=== PATIENT | female | born 1940 | race Caucasian/White ===

== ENCOUNTER 2020-01-15 18:43 | Emergency (ER) | payer MEDICARE, OTHER ==
[2020-01-15 19:00] VITALS: BP 158/94; PULSE 77
[2020-01-15] MEDS ORDERED: Haloperidol Lactate 2 MG/ML Oral Soln 15 ML Bottle PO ONE (19:04)
[2020-01-15] MEDS ORDERED: LORazepam 0.5 MG Tab PO ONE (19:05)
--- NOTE | 2020-01-15 19:11 | EDM.PDOCBH ---
ED HPI GENERAL MEDICAL PROBLEM - General Chief Complaint: Behavioral/Psych Stated Complaint: Agitation Time Seen by Provider: 01/15/20 18:45 Source of Information: Reports: Patient, EMS, Care Home Records History Limitations: Reports: No Limitations - History of Present Illness INITIAL COMMENTS - FREE TEXT/NARRATIVE: Patient sent from [facility] via EMS secondary to increased agitation nurse called with report stating she was outside fighting a tree and the [place] Patient states she does not know what is wrong she is just upset and do not know why she states she gets anxious every now and then he gets all worked up. She has no complaints at this time Onset: Today Duration: Hour(s): Associated Symptoms: Reports: No Other Symptoms. Denies: Confusion, Chest Pain , Cough, cough w sputum, Diaphoresis, Fever/Chills, Headaches, Loss of Appetite , Nausea/Vomiting - Related Data Allergies Allergy/AdvReac Type Severity Reaction Status Date / Time atorvastatin calcium Allergy Muscle Verified 01/15/20 19:04 [From Lipitor] Aches morphine Allergy Agitation Verified 01/15/20 19:04 simvastatin Allergy Muscle Verified 01/15/20 19:04 Aches Home Meds: Home Meds Aspirin [Halfprin] 81 mg PO DAILY 08/18/14 [History] Cyanocobalamin (Vitamin B-12) [Vitamin B-12] 500 mcg PO DAILY 08/18/14 [History] Donepezil [Aricept] 10 mg PO BEDTIME 08/18/14 [History] FLUoxetine [PROzac] 40 mg PO DAILY 08/18/14 [History] Fenofibrate Nanocrystallized [Fenofibrate] 145 mg PO DAILY 08/18/14 [History] Ferrous Sulfate, Dried [Slow Release Iron] 160 mg PO ASDIRECTED 08/18/14 [ History] Gabapentin [Neurontin] 200 mg PO BEDTIME 08/18/14 [History] Guaifenesin/Pseudoephedrne HCl [Mucinex D ER] 1 each PO Q12HR PRN 08/18/14 [ History] Omeprazole 20 mg PO DAILY 08/18/14 [History] Oxybutynin 5 mg PO BID 08/18/14 [History] Potassium Chloride 10 meq PO DAILY 08/18/14 [History] Triamterene/Hydrochlorothiazid [Triamterene-HCTZ 37.5-25 MG] 1 each PO DAILY 10/01 [History] lisinopriL [Prinivil] 30 mg PO DAILY 08/18/14 [History] Ciprofloxacin [Ciprofloxacin HCl] 250 mg PO BID #12 tab 08/19/14 [Rx] ED ROS GENERAL - Review of Systems Review Of Systems: See Below Constitutional: Denies: Fever, Chills, Malaise, Weakness, Night Sweats, Diaphoresis, Decreased Appetite HEENT: Reports: No Symptoms Respiratory: Reports: No Symptoms Cardiovascular: Reports: No Symptoms Endocrine: Reports: No Symptoms GI/Abdominal: Reports: No Symptoms : Reports: No Symptoms Musculoskeletal: Reports: No Symptoms Skin: Reports: No Symptoms Neurological: Denies: Confusion, Dizziness, Headache, Numbness, Seizure Psychiatric: Reports: Agitation, Anxiety Hematologic/Lymphatic: Reports: No Symptoms Immunologic: Reports: No Symptoms ED EXAM, BEHAVIORAL HEALTH - Physical Exam Exam: See Below Exam Limited By: No Limitations General Appearance: Alert, WD/WN, No Apparent Distress, Other (Patient is alert will follow some commands no she is at [facility] but does not know the date or the time she does know the year she answers appropriately to most of my questions with review of systems she is noted to be crying and agitated but states she has nothing wrong with her states she gets like this on occasion) Eye Exam: Bilateral Eye: EOMI, Normal Inspection Ears: Normal External Exam, Normal Canal, Hearing Grossly Normal, Normal TMs Nose: Normal Inspection, Normal Mucosa, No Blood Throat/Mouth: Normal Inspection, Normal Lips, Normal Teeth, Normal Gums, Normal Oropharynx, Normal Voice, No Airway Compromise Head: Atraumatic, Normocephalic Neck: Normal Inspection, Supple, Non-Tender, Full Range of Motion Respiratory/Chest: No Respiratory Distress, Lungs Clear, Normal Breath Sounds, No Accessory Muscle Use, Chest Non-Tender Cardiovascular: Normal Peripheral Pulses, Regular Rate, Rhythm, No Edema, No Gallop, No JVD, No Murmur, No Rub GI/Abdominal: Normal Bowel Sounds, Soft, Non-Tender, No Distention Extremities: Normal Inspection, Normal Range of Motion, Non-Tender, No Pedal Edema, Other (There is noted bilateral healing abrasions and ecchymosis on the right forearm) Neurological: Alert, Normal Mood/Affect, CN II-XII Intact, Normal Cognition, Normal Reflexes, No Motor/Sensory Deficits. No: Oriented x 3 (She knows person and place does not know time) Psychiatric: Alert, Normal Affect, Normal Cognition, Tearful. No: Poor Eye Contact, Jew Delusions, Suicidal Thoughts, Auditory Hallucinations Skin Exam: Warm, Dry, Intact, Normal color, No rash COURSE, BEHAVIORAL HEALTH COMP - Course Vital Signs: Last Vital Signs Temp 36.9 C 01/15/20 18:45 Pulse 77 01/15/20 18:45 Resp 20 01/15/20 18:45 BP 158/94 H 01/15/20 18:45 Pulse Ox 98 01/15/20 18:45 Patient will be given 2 mg Haldol p.o. and 0.5 mg Ativan p.o. At no time did Hoang Roca I have any involvement with this patient he was not even in the facility myself Forest Vega PA-C saw this patient Orders, Labs, Meds: Medications Discontinued Medications Generic Name Dose Route Start Last Admin Trade Name Freq PRN Reason Stop Dose Admin Haloperidol 2 mg 01/15/20 19:10 01/15/20 19:21 Haldol PO 01/15/20 19:11 2 mg STAT ONE Administration Haloperidol Confirm 01/15/20 19:24 Haldol Administered 01/15/20 19:25 Dose 5 mg .ROUTE .STK-MED ONE Haloperidol Lactate 2 mg 01/15/20 19:04 01/15/20 19:11 Haldol 2 Mg/Ml Soln PO 01/15/20 19:05 Not Given ONETIME ONE Lorazepam 0.5 mg 01/15/20 19:05 01/15/20 19:21 Ativan PO 01/15/20 19:06 0.5 mg ONETIME ONE Administration Departure - Departure Time of Disposition: 19:50 Disposition: DC/Tfer to SNF 03 Condition: Good Clinical Impression: Agitation - Discharge Information *PRESCRIPTION DRUG MONITORING PROGRAM REVIEWED*: No *COPY OF PRESCRIPTION DRUG MONITORING REPORT IN PATIENT MIRNA: No Forms: ED Department Discharge Additional Instructions: Your diagnosis is anxiety and agitation Continue to give the patient her daily medications as directed Return to the emergency room if anything changes or gets worse Have her follow-up with a primary care provider in the next 24 hours Sepsis Event Note - Evaluation Sepsis Screening Result: No Definite Risk - Focused Exam Vital Signs: Vital Signs Temp Pulse Resp BP Pulse Ox 01/15/20 18:45 36.9 C 77 20 158/94 H 98 Date Exam was Performed: 01/15/20 Time Exam was Performed: 19:41 - Problem List & Annotations (1) Agitation SNOMED Code(s): 447062190 Code(s): R45.1 - RESTLESSNESS AND AGITATION Status: Acute Current Visit: No
[2020-01-15] MEDS ORDERED: Haloperidol 5 MG Tab ONE (19:24)
== END 2020-01-15 20:02 ==
LOC: VM.ED 18:43
DX: S50.11XA Contusion of right forearm, initial encounter (principal); S50.812A Abrasion of left forearm, initial encounter; R45.1 Restlessness and agitation; F41.9 Anxiety disorder, unspecified; Z79.82 Long term (current) use of aspirin; Z79.899 Other long term (current) drug therapy; Z88.5 Allergy status to narcotic agent; Z88.8 Allergy status to other drugs, medicaments and biological substances; X58.XXXA Exposure to other specified factors, initial encounter
CPT/HCPCS: 99283; 99285; A9270

== ENCOUNTER 2020-02-16 18:04 | Emergency (ER) | payer MEDICARE, OTHER ==
--- NOTE | 2020-02-16 18:35 | EDM.PDOC ---
<Forest Roca - Last Filed: 02/16/20 19:16> ED HPI GENERAL MEDICAL PROBLEM - General Stated Complaint: FALL Time Seen by Provider: 02/16/20 18:15 Source of Information: Reports: EMS, Family - History of Present Illness INITIAL COMMENTS - FREE TEXT/NARRATIVE: Patient comes emergency department today by ambulance from the assisted living center at [facility] for increased falls and confusion. The HPI in this patient is primarily obtained from the family EMS as well as the [facility] as the patient is pleasantly confused and really does not get much history to me. Speaking with the [facility] it sounds like she has had increased confusion and trying to leave her assisted living situation more over the past few days. She has gotten outside and fallen a couple of times yesterday as well as today. These were unwitnessed and unknown if she had a loss of consciousness. She did fall and hit the right orbit of her face yesterday which she has a bruise for. Today she was found to be more agitated or confused. She fell twice outside today and yet again this was not observed. The son is noticed in gradual decline of her overall mental status over the past couple of months. He has not been able to see her due to the recent COVID concerns. - Related Data Allergies Allergy/AdvReac Type Severity Reaction Status Date / Time atorvastatin calcium Allergy Muscle Verified 01/15/20 19:04 [From Lipitor] Aches morphine Allergy Agitation Verified 01/15/20 19:04 simvastatin Allergy Muscle Verified 01/15/20 19:04 Aches Home Meds: Home Meds Aspirin [Halfprin] 81 mg PO DAILY 08/18/14 [History] Donepezil [Aricept] 10 mg PO BEDTIME 08/18/14 [History] FLUoxetine [PROzac] 40 mg PO DAILY 08/18/14 [History] Ferrous Sulfate, Dried [Slow Release Iron] 160 mg PO ASDIRECTED 08/18/14 [History] Gabapentin [Neurontin] 100 mg PO BEDTIME 08/18/14 [History] Guaifenesin/Pseudoephedrne HCl [Mucinex D ER] 1 each PO Q12HR PRN 08/18/14 [History] Potassium Chloride 10 meq PO DAILY 08/18/14 [History] lisinopriL [Prinivil] 40 mg PO DAILY 08/18/14 [History] Acetaminophen 1 - 2 tab PO Q6H PRN 01/15/20 [History] Calcium Carbonate [Tums] 2 tab PO Q6H PRN 01/15/20 [History] Carbamide Peroxide [Debrox] 15 ml OT ASDIRECTED PRN 01/15/20 [History] Cetirizine [ZyrTEC] 10 mg PO DAILY PRN 01/15/20 [History] Cholecalciferol (Vitamin D3) [Vitamin D] 4,000 unit PO DAILY 01/15/20 [History] Cranberry 400 mg PO DAILY 01/15/20 [History] Furosemide [Lasix] 40 mg PO DAILY 01/15/20 [History] Hydrocortisone [Preparation H] 26 gm TP TID PRN 01/15/20 [History] Isosorbide Mononitrate [Isosorbide Mononitrate ER] 30 mg PO DAILY 01/15/20 [History] LORazepam [Ativan] 0.25 mg PO BID 01/15/20 [History] LORazepam [Ativan] 0.25 mg PO BID PRN 01/15/20 [History] Loperamide [Imodium] 2 mg PO ASDIRECTED PRN 01/15/20 [History] Meclizine [Antivert] 25 mg PO TID 01/15/20 [History] Mirabegron [Myrbetriq] 25 mg PO DAILY 01/15/20 [History] Mirtazapine 30 mg PO BEDTIME 01/15/20 [History] QUEtiapine [SEROquel] 25 mg PO DAILY 01/15/20 [History] QUEtiapine [SEROquel] 50 mg PO BEDTIME 01/15/20 [History] Spironolactone [Aldactone] 25 mg PO DAILY 01/15/20 [History] cephALEXin [Keflex] 500 mg PO TID 7 Days #21 cap 02/16/20 [Rx] Past Medical History Cardiovascular History: Reports: Angina, CAD, High Cholesterol, Hypertension Musculoskeletal History: Reports: Osteoarthritis ED ROS GENERAL - Review of Systems Review Of Systems: Unable To Obtain Reason Not Obtained: Pleaseantly confused ED EXAM, GENERAL - Physical Exam Exam: See Below Free Text/Narrative:: The patient does have a wig on but there appears to be quite a bit of make-up or lipstick or some type of cosmetic product that is in her hair and as well as on her scalp. She does recognize her son in the room. Exam Limited By: Altered Mental Status (She is pleasantly confused. She knows her date of and last name otherwise she is confused to the rest of the orientation questions.) General Appearance: Alert, WD/WN Eye Exam: Bilateral Eye: EOMI, PERRL Ears: Normal External Exam. No: Normal TMs (Right TM is occluded with cerumen. The left TM is unremarkable pearly che with normal cone of light) Nose: Normal Inspection, Normal Mucosa Throat/Mouth: Normal Inspection, Normal Oropharynx Head: Normocephalic, Facial Tenderness (Does have ecchymosis to the right orbit as well as some swelling. There is no subcutaneous emphysema bony deformities.). No: Atraumatic (There is ecchymosis and swelling to the right orbit. The rest of the scalp is unremarkable and atraumatic. To include the facial features as well.) Neck: Normal Inspection, Supple, Non-Tender. No: Lymphadenopathy (L), Lymphadenopathy (R), Tender Lateral, Tender Midline Respiratory/Chest: No Respiratory Distress, Lungs Clear, Normal Breath Sounds, No Accessory Muscle Use, Chest Non-Tender Cardiovascular: Normal Peripheral Pulses, Regular Rate, Rhythm Peripheral Pulses: 2+: Radial (L), Radial (R), Posterior Tibial (L), Posterior Tibial (R), Dorsalis Pedis (L), Dorsalis Pedis (R) GI/Abdominal: Normal Bowel Sounds, Soft, Non-Tender, No Organomegaly, No Distention (Female) Exam: Deferred Rectal (Female) Exam: Deferred Back Exam: Normal Inspection, Full Range of Motion, Other (There is no bruising swelling ecchymosis or other signs of trauma to the posterior thorax). No: Paraspinal Tenderness, Vertebral Tenderness Extremities: Normal Capillary Refill, Pedal Edema (Bilaterally much more on the right than the left), Joint Swelling (To the right lower ankle.), Increased Warmth (Right lower distal tib fib ankle. ). No: Normal Inspection (She does have quite a bit of swelling of the right lower extremity that is much more sensitive than the left. It is hot and erythematous up about residential up the tib-fib region. There is also some ecchymosis on the posterior aspect of the calcaneus region.) Neurological: Alert, CN II-XII Intact, Normal Reflexes, No Motor/Sensory Deficits, Confused (As stated previously she knows her name date of and her son in the room she is otherwise confused.). No: Normal Cognition Psychiatric: Anxious Skin Exam: Warm, Dry, Intact, Normal Color Course - Re-Assessments/Exams Free Text/Narrative Re-Assessment/Exam: 02/16/20 18:37 Blood cultures x2 with concerns of the cellulitis to the right lower extremity. Labs ordered to include UA. CT head neck facial bones as well as an x-ray of the right ankle. 02/16/20 19:16 Report to Eleonora AYALA at shift change. Waiting on labs and xray reports. Departure - Departure Disposition: Home, Self-Care 01 Clinical Impression: Cellulitis Qualifiers: Site of cellulitis: extremity Site of cellulitis of extremity: lower extremity Laterality: right Qualified Code(s): L03.115 - Cellulitis of right lower limb - Discharge Information Prescriptions: cephALEXin [Keflex] 500 mg PO TID 7 Days #21 cap Instructions: Cellulitis, Adult, Cephalexin tablets or capsules Referrals: Sara Sprague MD [Primary Care Provider] - Forms: ED Department Discharge Additional Instructions: 1. rest 2. increase your water intake 3. Take all antibiotics as prescribed even if feeling better 4. Take a probiotic while on antibiotics to help promote healthy GI motility 5. Activity and diet as tolerated 6. Can use Ibuprofen and tylenol for any fever or discomfort 7. Follow up with your PCP or return if symptoms progress or worsen 8. Education provided to you regarding your illness, probiotics, antibiotic prescribed 9. Call with any questions or concerns <Eleonora Walker - Last Filed: 02/16/20 19:55> Course - Orders/Labs/Meds Orders: Active Orders 24 hr Category Date Time Status CULTURE BLOOD [BC] Stat Lab 02/16/20 18:28 Received CULTURE BLOOD [BC] Stat Lab 02/16/20 18:33 Received CULTURE URINE [RM] Stat Lab 02/16/20 19:12 Received Blood Culture x2 Reflex Set [OM.PC] Stat Oth 02/16/20 18:15 Ordered Labs: Laboratory Tests 02/16/20 02/16/20 02/16/20 Range/Units 18:28 18:28 19:12 WBC 6.2 (4.0-10.0) x10^3/uL RBC 3.52 L (4.00-5.50) x10^6/uL Hgb 10.2 L D (12.0-16.0) g/dL Hct 31.4 L (33.0-47.0) % MCV 89.2 (78.0-93.0) fL MCH 29.0 (26.0-32.0) pg MCHC 32.5 (32.0-36.0) g/dL RDW Coeff of [place] 14.2 (10.0-15.0) % Plt Count 283 (130-400) x10^3/uL Neut % (Auto) 67.3 (50.0-80.0) % Lymph % (Auto) 16.2 L (25.0-50.0) % [place] % (Auto) 10.7 (2.0-11.0) % Eos % (Auto) 5.2 H (0.0-4.0) % Baso % (Auto) 0.6 (0.2-1.2) % Sodium 141 (136-145) mmol/L Potassium 4.1 (3.5-5.1) mmol/L Chloride 106 (98-107) mmol/L Carbon Dioxide 25 (21-32) mmol/L Anion Gap 14.1 (10-20) mmol/L BUN 22 H (7-18) mg/dL Creatinine 1.7 H (0.55-1.02) mg/dL Est Cr Clr Drug Dosing TNP Estimated GFR (MDRD) 29 Glucose 166 H (74-106) mg/dL Calcium 8.0 L (8.5-10.1) mg/dL Corrected Calcium 8.80 (8.5-10.1) mg/dL Total Bilirubin 0.5 (0.2-1.0) mg/dL AST 24 (15-37) U/L ALT 23 (14-59) U/L Alkaline Phosphatase 99 (46-116) U/L C-Reactive Protein 0.8 (<=0.9) mg/dL Total Protein 6.0 L (6.4-8.2) g/dL Albumin 3.0 L (3.4-5.0) g/dL Globulin 3.0 Albumin/Globulin Ratio 1.00 Urine Color Yellow (YELLOW) Urine Appearance Slightly cloudy H (CLEAR) Urine pH 6.0 (5.0-8.0) Ur Specific [place] 1.020 Urine Protein Negative (NEGATIVE) mg/dL Urine Glucose (UA) Negative (NEGATIVE) mg/dL Urine Ketones Negative (NEGATIVE) mg/dL Urine Occult Blood Negative (NEGATIVE) Urine Nitrite Negative (NEGATIVE) Urine Bilirubin Negative (NEGATIVE) Urine Urobilinogen 0.2 (0.2) EU/dL Ur Leukocyte Esterase Small H (NEGATIVE) Urine RBC 0-5 (NOT SEEN) /HPF Urine WBC 5-10 H (NOT SEEN) /HPF Ur Squamous Epith Cells Occasional H (NEGATIVE) /HPF Urine Bacteria Rare (NEGATIVE) /HPF Urine Mucus Rare H (NEGATIVE) /LPF Meds: Medications Discontinued Medications Generic Name Dose Route Start Last Admin Trade Name Freq PRN Reason Stop Dose Admin Cephalexin 500 mg 02/16/20 19:46 Keflex PO 02/16/20 19:47 ONETIME ONE Departure - Departure Time of Disposition: 19:50 Condition: Good - Assessment/Plan Assessment:: 1. Right lower extremity cellulitis Plan: 1. Labs completed in the ER. Results reviewed with the patient and son 2. UA completed in the ER Results reviewed with the patient and son 3. CT scan of Head and neck completed in ER results reviewed with the patient and son 4. Xray of right lower extremity complete 5. Patient and nursing staff was updated regarding the plan of care 6. Education provided the patient regarding activity, diet, rest, [id number] medication modalities, and follow-up care was provided 7. Patient and family are agreeable to the above plan of care 8. All questions and concerns were addressed with the patient and family prior to discharge
[2020-02-16 19:01] LABS: ANION GAP 14.1 mmol/L (10-20); CHLORIDE,CL 106 mmol/L (98-107); SODIUM,NA 141 mmol/L (136-145)
--- NOTE | 2020-02-16 19:31 | CT ---
[id number] CT/CT Head WO IV EXAM: NONCONTRAST HEAD CT INDICATION: INCREASED CONFUSION AND FALLS, FACIAL INJURY COMPARISON: December 17, 2016. DISCUSSION: There is mild generalized atrophy. Moderate multifocal white matter hypoattenuation is nonspecific, but generally ascribed to chronic small vessel ischemia. No mass effect or midline shift. No acute hemorrhage or extra-axial fluid collection. No acute territorial infarct is identified. Mild scattered polypoid paranasal sinus mucosal thickening versus small mucosal retention cysts in the sphenoid sinuses and left maxillary sinus. Right anterior scalp soft tissue swelling. The facial bones will be further detailed on a dedicated facial bone study. IMPRESSION: 1. No evidence of acute intracranial trauma. Noam Escalante MD 02/16/20 [id number] Thank you for allowing us to participate in the care of your patient.
--- NOTE | 2020-02-16 19:35 | CT ---
[id number] CT/CT Facial Bones WO IV EXAM: FACIAL BONE CT WITHOUT CONTRAST INDICATION: RECURRENT FALLS COMPARISON: None. DISCUSSION: Preseptal periorbital right facial soft tissue swelling and right anterior scalp soft tissue swelling/small hematoma. Moderate osteoarthritis of the temporomandibular joints. No acute facial bone fracture is identified. Trace fluid in the right sphenoid sinus suggests acute sinusitis. Small mucosal retention cysts in both maxillary and sphenoid sinuses. IMPRESSION: 1. Right facial soft tissue swelling. No acute facial bone fracture is identified. Noam Escalante MD 02/16/20 1934 Thank you for allowing us to participate in the care of your patient.
--- NOTE | 2020-02-16 19:40 | CT ---
[id number] CT/CT Cervical Spine WO IV EXAM: NONCONTRAST CERVICAL SPINE CT INDICATION: RECURRENT FALLS, CONFUSION COMPARISON: None. DISCUSSION: The vertebral bodies are normal in height and alignment. No fracture or suspicious osseous lesion is identified. Moderate to advanced degenerative disc disease at C5-C6 with moderate changes at most of the remaining disc levels. Facet arthropathy ranging from mild to moderate throughout the cervical spine. Bilateral carotid bifurcation calcification dictations are noted. IMPRESSION: 1. No evidence of acute cervical spine trauma. Noam Escalante MD 02/16/20 1938 Thank you for allowing us to participate in the care of your patient.
--- NOTE | 2020-02-16 19:41 | CR ---
[id number] RAD/RAD Ankle Right 3V Min EXAM: RAD Ankle Right 3V Min INDICATION: RIGHT ANKLE PAIN, RECURRENT FALLS COMPARISON: None. DISCUSSION: Soft tissue swelling throughout the ankle and imaged distal leg. Osteopenia. Small plantar calcaneal spur. Mild to moderate enthesopathy at the Achilles attachment on the calcaneus. No acute fracture or dislocation is identified. Arterial calcifications. IMPRESSION: 1. Soft tissue swelling. No acute osseous abnormality. Noam Escalante MD 02/16/20 [id number] Thank you for allowing us to participate in the care of your patient.
[2020-02-16] MEDS ORDERED: Cephalexin 500 MG Cap PO ONE (19:46)
[2020-02-16 19:59] VITALS: BP 140/58; PULSE 80
== END 2020-02-16 20:00 | disposition home or self-care (01) ==
LOC: VM.ED 18:04
DX: L03.115 Cellulitis of right lower limb (principal); I10 Essential (primary) hypertension; I25.10 Atherosclerotic heart disease of native coronary artery without angina pectoris; M19.90 Unspecified osteoarthritis, unspecified site; Z79.82 Long term (current) use of aspirin; Z79.899 Other long term (current) drug therapy; Z88.5 Allergy status to narcotic agent; Z88.8 Allergy status to other drugs, medicaments and biological substances
CPT/HCPCS: 36415; 70450; 70486; 72125; 73610-RT; 80053; 81001; 85025; 86140; 87040; 87086; 99284-GF; 99285-25; A9270-GY

== ENCOUNTER 2020-05-12 12:36 | Emergency (ER) | payer MEDICARE, OTHER ==
[2020-05-12 12:50] VITALS: BP 110/59; PULSE 78
--- NOTE | 2020-05-12 12:52 | EDM.PDOC ---
ED HPI GENERAL MEDICAL PROBLEM - General Chief Complaint: Upper Extremity Injury/Pain Stated Complaint: R ARM PAIN Time Seen by Provider: 05/12/20 12:40 Source of Information: Reports: Patient History Limitations: Reports: No Limitations, Other (vascular dementia, chronic confusion ) - History of Present Illness INITIAL COMMENTS - FREE TEXT/NARRATIVE: Patient comes into the emergency department with [facility] staff for complaint of a right arm injury. [facility] staff state that the patient had an unwitnessed fall last evening and this morning they started noticing the patient was guarding her right arm and not using it. Staff also noticed increase in swelling and bruising on the right arm. Patient does have cognition and memory concerns and is unable to provide a adequate history of the illness. Patient does appear to be guarding the right wrist region. She is also not using that arm. Patient actively denies any issues or concerns however again she is a poor historian based off of her cognition and mental capacity. halfway staff state that they had no other concerns or complaints and that the patient's been relatively healthy. They also have not noticed any COVID19 symptoms. Patient also has not had any positive COVID-19 test. Onset: Sudden Location: Reports: Upper Extremity, Right Quality: Reports: Other Improves with: Reports: Immobilization Worsens with: Reports: Movement Associated Symptoms: Reports: No Other Symptoms - Related Data Allergies Allergy/AdvReac Type Severity Reaction Status Date / Time atorvastatin calcium Allergy Muscle Verified 05/12/20 12:54 [From Lipitor] Aches morphine Allergy Agitation Verified 05/12/20 12:54 simvastatin Allergy Muscle Verified 05/12/20 12:54 Aches Home Meds: Home Meds Aspirin [Halfprin] 81 mg PO DAILY 08/18/14 [History] Donepezil [Aricept] 10 mg PO BEDTIME 08/18/14 [History] FLUoxetine [PROzac] 40 mg PO DAILY 08/18/14 [History] Ferrous Sulfate, Dried [Slow Release Iron] 160 mg PO ASDIRECTED 08/18/14 [History] Gabapentin [Neurontin] 100 mg PO BEDTIME 08/18/14 [History] Guaifenesin/Pseudoephedrne HCl [Mucinex D ER] 1 each PO Q12HR PRN 08/18/14 [History] Potassium Chloride 10 meq PO DAILY 08/18/14 [History] lisinopriL [Prinivil] 40 mg PO DAILY 08/18/14 [History] Acetaminophen 1 - 2 tab PO Q6H PRN 01/15/20 [History] Calcium Carbonate [Tums] 2 tab PO Q6H PRN 01/15/20 [History] Carbamide Peroxide [Debrox] 15 ml OT ASDIRECTED PRN 01/15/20 [History] Cetirizine [ZyrTEC] 10 mg PO DAILY PRN 01/15/20 [History] Cholecalciferol (Vitamin D3) [Vitamin D] 4,000 unit PO DAILY 01/15/20 [History] Cranberry 400 mg PO DAILY 01/15/20 [History] Furosemide [Lasix] 40 mg PO DAILY 01/15/20 [History] Hydrocortisone [Preparation H] 26 gm TP TID PRN 01/15/20 [History] Isosorbide Mononitrate [Isosorbide Mononitrate ER] 30 mg PO DAILY 01/15/20 [History] LORazepam [Ativan] 0.25 mg PO BID 01/15/20 [History] LORazepam [Ativan] 0.25 mg PO BID PRN 01/15/20 [History] Loperamide [Imodium] 2 mg PO ASDIRECTED PRN 01/15/20 [History] Meclizine [Antivert] 25 mg PO TID 01/15/20 [History] Mirabegron [Myrbetriq] 25 mg PO DAILY 01/15/20 [History] Mirtazapine 30 mg PO BEDTIME 01/15/20 [History] QUEtiapine [SEROquel] 25 mg PO DAILY 01/15/20 [History] QUEtiapine [SEROquel] 50 mg PO BEDTIME 01/15/20 [History] Spironolactone [Aldactone] 25 mg PO DAILY 01/15/20 [History] cephALEXin [Keflex] 500 mg PO TID 7 Days #21 cap 02/16/20 [Rx] Past Medical History Cardiovascular History: Reports: Angina, CAD, High Cholesterol, Hypertension Musculoskeletal History: Reports: Osteoarthritis Review of Systems - Review of Systems Review Of Systems: Unable To Obtain Reason Not Obtained: [facility] personnel answered the below questions. Constitutional: Reports: No Symptoms Eyes: Reports: No Symptoms Ears: Reports: No Symptoms Nose: Reports: No Symptoms Mouth/Throat: Reports: No Symptoms Respiratory: Reports: No Symptoms Cardiovascular: Reports: No Symptoms GI/Abdominal: Reports: No Symptoms Skin: Reports: No Symptoms Neurological: Reports: No Symptoms ED EXAM, GENERAL - Physical Exam Exam: See Below Exam Limited By: Other General Appearance: Alert, WD/WN, No Apparent Distress Eye Exam: Bilateral Eye: EOMI, PERRL Head: Atraumatic, Normocephalic Neck: Normal Inspection, Supple, Non-Tender, Full Range of Motion Respiratory/Chest: No Respiratory Distress, Lungs Clear, Normal Breath Sounds, No Accessory Muscle Use, Chest Non-Tender Cardiovascular: Normal Peripheral Pulses, Regular Rate, Rhythm, No Edema Extremities: Normal Inspection, Normal Range of Motion, Non-Tender, No Pedal Edema, Normal Capillary Refill Neurological: Alert Skin Exam: Warm, Dry, Intact, Normal Color, Other (right wrist- limited ROM. CMS intact. mod swelling and ecchymosis noted. no redness and warmth noted ) Course - Vital Signs Last Recorded V/S: Last Vital Signs Temp 36.1 C 05/12/20 12:42 Pulse 78 05/12/20 12:42 Resp 18 05/12/20 12:42 BP 110/59 L 05/12/20 12:42 Pulse Ox 97 05/12/20 12:42 Departure - Departure Time of Disposition: 13:50 Disposition: Home, Self-Care 01 Condition: Good Clinical Impression: Fracture of radius Qualifiers: Encounter type: initial encounter Fracture type: closed Fracture morphology: unspecified fracture morphology Laterality: right - Discharge Information *PRESCRIPTION DRUG MONITORING PROGRAM REVIEWED*: Not Applicable *COPY OF PRESCRIPTION DRUG MONITORING REPORT IN PATIENT MIRNA: Not Applicable Instructions: Wrist Fracture Treated With Immobilization, [id number] Referrals: Sara Sprague MD [Primary Care Provider] - Forms: ED Department Discharge, ED Return to Work/School Form Additional Instructions: 1. Rest 2. wear splint until evaluated by orthopedic 3. Can use tylenol and ibuprofen as needed for pain and discomfort 4. Diet as tolerated 5. Activity as tolerated 6. Elevated the injured area above the level of the heart to decrease swelling and discomfort. 7. Use ice 3-4 times a day at 20-minute intervals to help with any swelling and discomfort 8. Follow-up with your primary care provider symptoms continue or to progress 9. Follow with any questions or concerns 10. Discharge information has been provided regarding your injury Sepsis Event Note (ED) - Focused Exam Vital Signs: Vital Signs Temp Pulse Resp BP Pulse Ox 05/12/20 12:42 36.1 C 78 18 110/59 L 97 - Assessment/Plan Assessment:: 1. right arm injury 2. right wrist fracture Plan: 1. X-ray completed in the emergency department results reviewed with the patient 2. Ice Applied to the affected limb 3. thumb splint spica provided 4. Education regarding splinting, activity, [id number] medications, and follow-up care provided. 5. All questions and concerns addressed with the patient prior to discharge
--- NOTE | 2020-05-12 13:36 | CR ---
[id number] RAD/RAD Wrist Right 2V Exam: RAD Wrist Right 2V Indication:FALL. Comparison: No prior imaging for comparison. Discussion/Impression: Acute complete transverse nondisplaced slightly impacted fracture of the distal radial metaphysis. Fracture is mildly comminuted with at least one fracture line extending through the radius subchondral endplate into the radiocarpal articulation. Possible nondisplaced fracture at the base of the ulnar styloid. Additionally there is a possible triquetral avulsion fracture seen on lateral view along the dorsal aspect of the carpus. Soft tissue swelling. Braulio Carter MD 05/12/20 [id number] Thank you for allowing us to participate in the care of your patient.
== END 2020-05-12 13:56 | disposition home or self-care (01) ==
LOC: VM.ED 12:36
DX: S52.501A Unspecified fracture of the lower end of right radius, initial encounter for closed fracture (principal); S60.211A Contusion of right wrist, initial encounter; S50.11XA Contusion of right forearm, initial encounter; I10 Essential (primary) hypertension; I25.10 Atherosclerotic heart disease of native coronary artery without angina pectoris; Z88.5 Allergy status to narcotic agent; Z88.8 Allergy status to other drugs, medicaments and biological substances; Z79.82 Long term (current) use of aspirin; Z79.899 Other long term (current) drug therapy; W19.XXXA Unspecified fall, initial encounter
CPT/HCPCS: 29125; 73100-RT; 99283; 99283-25

== ENCOUNTER 2020-06-27 22:57 | Emergency (ER) | payer MEDICARE, OTHER ==
--- NOTE | 2020-06-27 23:49 | EDM.PDOC ---
ED HPI GENERAL MEDICAL PROBLEM - General Stated Complaint: FALL Time Seen by Provider: 06/27/20 23:30 Source of Information: Reports: Patient History Limitations: Reports: No Limitations - History of Present Illness INITIAL COMMENTS - FREE TEXT/NARRATIVE: Patient comes emergency department today from the special cares unit at the detention for a fall. HPI is obtained from EMS as well as the detention as the patient has dementia and really is not alert and appropriate. The patient was getting up to go to the bathroom when she tripped and fell landing injuring her right hand. This happened just prior to arrival. Or unsure if there was a loss of consciousness. The patient has been acting appropriately as she normally does. The staff at the detention noted that she had a skin tear to her right hand. So she to the ER for repair of the skin tear to her right hand. Patient has not been vomiting. She falls on a regular basis. There is no change in her baseline neurological status according to the detention. - Related Data Allergies Allergy/AdvReac Type Severity Reaction Status Date / Time atorvastatin calcium Allergy Muscle Verified 06/27/20 23:50 [From Lipitor] Aches morphine Allergy Agitation Verified 06/27/20 23:50 simvastatin Allergy Muscle Verified 06/27/20 23:50 Aches Home Meds: Home Meds Aspirin [Halfprin] 81 mg PO DAILY 08/18/14 [History] Donepezil [Aricept] 10 mg PO BEDTIME 08/18/14 [History] FLUoxetine [PROzac] 40 mg PO DAILY 08/18/14 [History] Ferrous Sulfate, Dried [Slow Release Iron] 160 mg PO ASDIRECTED 08/18/14 [History] Gabapentin [Neurontin] 100 mg PO BEDTIME 08/18/14 [History] Guaifenesin/Pseudoephedrne HCl [Mucinex D ER] 1 each PO Q12HR PRN 08/18/14 [History] Potassium Chloride 10 meq PO DAILY 08/18/14 [History] lisinopriL [Prinivil] 40 mg PO DAILY 08/18/14 [History] Acetaminophen 1 - 2 tab PO Q6H PRN 01/15/20 [History] Calcium Carbonate [Tums] 2 tab PO Q6H PRN 01/15/20 [History] Carbamide Peroxide [Debrox] 15 ml OT ASDIRECTED PRN 01/15/20 [History] Cetirizine [ZyrTEC] 10 mg PO DAILY PRN 01/15/20 [History] Cholecalciferol (Vitamin D3) [Vitamin D] 4,000 unit PO DAILY 01/15/20 [History] Cranberry 400 mg PO DAILY 01/15/20 [History] Furosemide [Lasix] 40 mg PO DAILY 01/15/20 [History] Hydrocortisone [Preparation H] 26 gm TP TID PRN 01/15/20 [History] Isosorbide Mononitrate [Isosorbide Mononitrate ER] 30 mg PO DAILY 01/15/20 [History] LORazepam [Ativan] 0.25 mg PO BID 01/15/20 [History] LORazepam [Ativan] 0.25 mg PO BID PRN 01/15/20 [History] Loperamide [Imodium] 2 mg PO ASDIRECTED PRN 01/15/20 [History] Meclizine [Antivert] 25 mg PO TID 01/15/20 [History] Mirabegron [Myrbetriq] 25 mg PO DAILY 01/15/20 [History] Mirtazapine 30 mg PO BEDTIME 01/15/20 [History] QUEtiapine [SEROquel] 25 mg PO DAILY 01/15/20 [History] QUEtiapine [SEROquel] 50 mg PO BEDTIME 01/15/20 [History] Spironolactone [Aldactone] 25 mg PO DAILY 01/15/20 [History] cephALEXin [Keflex] 500 mg PO TID 7 Days #21 cap 02/16/20 [Rx] Past Medical History Cardiovascular History: Reports: Angina, CAD, High Cholesterol, Hypertension Musculoskeletal History: Reports: Osteoarthritis Psychiatric History: Reports: Anxiety, Dementia, Depression ED ROS GENERAL - Review of Systems Review Of Systems: Unable To Obtain Reason Not Obtained: Dementia and confusion chronically ED EXAM, GENERAL - Physical Exam Exam: See Below Exam Limited By: Altered Mental Status (dementia chronically.) General Appearance: Alert, WD/WN, No Apparent Distress Eye Exam: Bilateral Eye: EOMI, PERRL Ears: Normal External Exam, Normal Canal, Normal TMs Nose: Normal Inspection, Normal Mucosa Throat/Mouth: Normal Inspection, Normal Lips, Normal Oropharynx, Normal Voice Head: Atraumatic, Normocephalic Neck: Normal Inspection, Supple, Non-Tender. No: Tender Lateral, Tender Midline Respiratory/Chest: No Respiratory Distress, Lungs Clear, Normal Breath Sounds, No Accessory Muscle Use, Chest Non-Tender Cardiovascular: Normal Peripheral Pulses, Regular Rate, Rhythm Peripheral Pulses: 2+: Radial (L), Radial (R), Posterior Tibial (L), Posterior Tibial (R), Dorsalis Pedis (L), Dorsalis Pedis (R) GI/Abdominal: Normal Bowel Sounds, Soft, Non-Tender (Female) Exam: Deferred Rectal (Female) Exam: Deferred Back Exam: Normal Inspection, Full Range of Motion. No: Paraspinal Tenderness, Vertebral Tenderness Extremities: Normal Range of Motion, Non-Tender, No Pedal Edema, Normal Capillary Refill. No: Normal Inspection (On her right dorsal hand there is a C shaped very superficial 6cm skin tear to the distal lateral right dorsal hand. No Bony deformity crepitus bruising swelling ecchymosis or tenderness. Rest of the hand is atraumatic.) Neurological: Alert, CN II-XII Intact, No Motor/Sensory Deficits, Disoriented (which is her baseline. ) Psychiatric: Normal Affect, Normal Mood Skin Exam: Warm, Dry, Intact, Normal Color, No Rash ED GENERAL MEDICAL PROCEDURES - Laceration/Wound Repair Right Anterior Hand Lac/wound length in cm: 6 Appearance: Superficial, Linear Distal NVT: Neuro & Vascular Intact Skin Prep: Chlorhexidine (Hibiciens), Saline Closed with: Dermabond Course - Vital Signs Last Recorded V/S: Last Vital Signs Temp 96.7 F L 06/27/20 22:57 Pulse 56 L 06/27/20 22:57 Resp 16 06/27/20 22:57 BP 136/60 06/27/20 22:57 Pulse Ox 96 06/27/20 22:57 - Orders/Labs/Meds Meds: Medications Discontinued Medications Generic Name Dose Route Start Last Admin Trade Name Freq PRN Reason Stop Dose Admin Diphtheria/Tetanus/Acell Pertussis 0.5 ml 06/28/20 00:45 06/28/20 00:10 Boostrix IM 06/28/20 00:46 0.5 ml .ONCE ONE Administration Departure - Departure Time of Disposition: 23:50 Disposition: DC/Tfer to [facility] 03 Clinical Impression: Skin tear - Discharge Information Instructions: Skin Tear, [id number] Referrals: PCP,Unobtain [Ordering Only Provider] - Forms: ED Department Discharge Additional Instructions: Watch for signs of infection. Keep the area clean and dry. Watch for signs of infection. Return to the ED if new or worsening symptoms. Recheck as needed.
[2020-06-28] MEDS ORDERED: Diphtheria,Pertussis(Acell),Tetanus Vaccine 0.5 ML Syringe IM ONE ×2 (00:01→00:45)
[2020-06-28 01:04] VITALS: BP 136/60; PULSE 56
== END 2020-06-28 00:28 ==
LOC: VM.ED 22:57
DX: S61.411A Laceration without foreign body of right hand, initial encounter (principal); I25.10 Atherosclerotic heart disease of native coronary artery without angina pectoris; I10 Essential (primary) hypertension; M19.90 Unspecified osteoarthritis, unspecified site; F41.9 Anxiety disorder, unspecified; F32.9 Major depressive disorder, single episode, unspecified; F03.90 Unspecified dementia, unspecified severity, without behavioral disturbance, psychotic disturbance, mood disturbance, and anxiety; Z88.8 Allergy status to other drugs, medicaments and biological substances; Z88.5 Allergy status to narcotic agent; Z79.82 Long term (current) use of aspirin; Z23 Encounter for immunization; Z79.899 Other long term (current) drug therapy; W19.XXXA Unspecified fall, initial encounter; Y92.129 Unspecified place in nursing home as the place of occurrence of the external cause
CPT/HCPCS: 12002; 90471; 90715; 99283; 99284-25

== ENCOUNTER 2020-11-26 12:10 | Inpatient (IN) | payer MEDICARE, OTHER, MEDICAID ==
[2020-11-26] MEDS ORDERED: Sodium Chloride 0.9% 10 ML Syringe FLUSH PRN (12:19)
--- NOTE | 2020-11-26 12:35 | EDM.PDOC ---
ED HPI GENERAL MEDICAL PROBLEM - General Stated Complaint: FELL Time Seen by Provider: 11/26/20 12:10 Source of Information: Reports: Patient History Limitations: Reports: No Limitations - History of Present Illness INITIAL COMMENTS - FREE TEXT/NARRATIVE: Pt. presents to ER via EMS. Pt. has had 2 falls in the last several days, the last one this AM. Pt. has a decreased level of consciousness and is minimally responsive. She was hypotensive at the shelter. Pt. did strike her head in the fall. Pt. has also been vomiting. Staff states that pt. did have a positive LOC during the first fall. Pt. is not anticoagulated. Pt. has a history of dementia. According to previous documentation from previous ER visit, pt. was not very responsive to questioning at that time. Unable to obtained ROS of this patient due to decreased LOC. EMS states that the patient was hypotensive with blood pressure in the 70s/40s during transport. She was also hypoxic with O2 saturation in the 70% range on RA. This increased to near 100% with O2 per non-rebreather. Onset: Today Onset Date: 11/26/20 Location: Reports: Head, Generalized Associated Symptoms: Reports: Confusion - Related Data Allergies Allergy/AdvReac Type Severity Reaction Status Date / Time atorvastatin calcium Allergy Muscle Verified 06/27/20 23:50 [From Lipitor] Aches morphine Allergy Agitation Verified 06/27/20 23:50 simvastatin Allergy Muscle Verified 06/27/20 23:50 Aches Home Meds: Home Meds Aspirin [Halfprin] 81 mg PO DAILY 08/18/14 [History] Donepezil [Aricept] 10 mg PO BEDTIME 08/18/14 [History] FLUoxetine [PROzac] 40 mg PO DAILY 08/18/14 [History] Ferrous Sulfate, Dried [Slow Release Iron] 160 mg PO ASDIRECTED 08/18/14 [History] Gabapentin [Neurontin] 100 mg PO BEDTIME 08/18/14 [History] Guaifenesin/Pseudoephedrne HCl [Mucinex D ER] 1 each PO Q12HR PRN 08/18/14 [History] Potassium Chloride 10 meq PO DAILY 08/18/14 [History] lisinopriL [Prinivil] 40 mg PO DAILY 08/18/14 [History] Acetaminophen 1 - 2 tab PO Q6H PRN 01/15/20 [History] Calcium Carbonate [Tums] 2 tab PO Q6H PRN 01/15/20 [History] Carbamide Peroxide [Debrox] 15 ml OT ASDIRECTED PRN 01/15/20 [History] Cetirizine [ZyrTEC] 10 mg PO DAILY PRN 01/15/20 [History] Cholecalciferol (Vitamin D3) [Vitamin D] 4,000 unit PO DAILY 01/15/20 [History] Cranberry 400 mg PO DAILY 01/15/20 [History] Furosemide [Lasix] 40 mg PO DAILY 01/15/20 [History] Hydrocortisone [Preparation H] 26 gm TP TID PRN 01/15/20 [History] Isosorbide Mononitrate [Isosorbide Mononitrate ER] 30 mg PO DAILY 01/15/20 [History] LORazepam [Ativan] 0.25 mg PO BID 01/15/20 [History] LORazepam [Ativan] 0.25 mg PO BID PRN 01/15/20 [History] Loperamide [Imodium] 2 mg PO ASDIRECTED PRN 01/15/20 [History] Meclizine [Antivert] 25 mg PO TID 01/15/20 [History] Mirabegron [Myrbetriq] 25 mg PO DAILY 01/15/20 [History] Mirtazapine 30 mg PO BEDTIME 01/15/20 [History] QUEtiapine [SEROquel] 25 mg PO DAILY 01/15/20 [History] QUEtiapine [SEROquel] 50 mg PO BEDTIME 01/15/20 [History] Spironolactone [Aldactone] 25 mg PO DAILY 01/15/20 [History] cephALEXin [Keflex] 500 mg PO TID 7 Days #21 cap 02/16/20 [Rx] Past Medical History Cardiovascular History: Reports: Angina, CAD, High Cholesterol, Hypertension Musculoskeletal History: Reports: Osteoarthritis Psychiatric History: Reports: Anxiety, Dementia, Depression ED ROS GENERAL - Review of Systems Review Of Systems: Comprehensive ROS is negative, except as noted in HPI. (See HPI) Constitutional: Reports: Malaise, Weakness, Fatigue ED EXAM, GENERAL - Physical Exam Exam: See Below Exam Limited By: No Limitations General Appearance: Alert, WD/WN, No Apparent Distress Eye Exam: Bilateral Eye: EOMI, Normal Inspection, PERRL Nose: Normal Inspection, No Blood Throat/Mouth: Normal Inspection, Normal Oropharynx, No Airway Compromise Head: Other (abrasion/hematoma to forhead. No obvious bony deformity noted.) Neck: Normal Inspection, Supple, Non-Tender Respiratory/Chest: No Respiratory Distress, Lungs Clear, Normal Breath Sounds, No Accessory Muscle Use, Chest Non-Tender Cardiovascular: Normal Peripheral Pulses, Regular Rate, Rhythm, No Edema, No JVD Peripheral Pulses: 4+: Radial (L) GI/Abdominal: Soft, Non-Tender, No Distention, No Mass (Female) Exam: Deferred Rectal (Female) Exam: Deferred Back Exam: Normal Inspection, Full Range of Motion Extremities: Normal Inspection, Normal Range of Motion, No Pedal Edema, Normal Capillary Refill Neurological: Disoriented, Other (Minimally responsive. Followed some commands. Pt. was becoming more responsive over time once her blood pressure was improving with IV fluids. Pt. did recognize her daughter in law.) Psychiatric: Depressed Mood, Flat Affect Skin Exam: Warm, Dry, Pallor Lymphatic: No Adenopathy #1 Interpretation Rhythm: NSR EKG Interpretation Comments: Sinus tach Course - Vital Signs Last Recorded V/S: Last Vital Signs Temp 36.3 C 11/26/20 12:10 Pulse 89 11/26/20 12:10 Resp 30 H 11/26/20 12:10 BP 84/67 L 11/26/20 12:10 Pulse Ox 97 11/26/20 12:10 - Orders/Labs/Meds Orders: Active Orders 24 hr Category Date Time Status Patient Status [ADT] Routine ADT 11/26/20 13:43 Ordered EKG Documentation Completion [RC] STAT Care 11/26/20 12:20 Active CULTURE BLOOD [BC] Stat Lab 11/26/20 12:18 Received CULTURE BLOOD [BC] Stat Lab 11/26/20 12:24 Results CULTURE URINE [RM] Stat Lab 11/26/20 12:30 Received REFLEX LACTIC ACID YES OR NO [CHEM] Routine Lab 11/26/20 13:21 Received Sodium Chloride 0.9% [Saline Flush] Med 11/26/20 12:19 Active 10 ml FLUSH ASDIRECTED PRN Blood Culture x2 Reflex Set [OM.PC] Stat Oth 11/26/20 12:21 Ordered Peripheral IV Insertion Adult [OM.PC] Routine Oth 11/26/20 12:21 Ordered Medication Orders Sodium Chloride (Sodium Chloride 0.9% 10 Ml Syringe) 10 ml FLUSH ASDIRECTED PRN PRN Reason: Keep Vein Open Labs: Laboratory Tests 11/26/20 11/26/20 11/26/20 Range/Units 12:18 12:18 12:18 WBC 12.2 H (4.0-10.0) x10^3/uL RBC 3.90 L (4.00-5.50) x10^6/uL Hgb 11.0 L (12.0-16.0) g/dL Hct 34.9 (33.0-47.0) % MCV 89.5 (78.0-93.0) fL MCH 28.2 (26.0-32.0) pg MCHC 31.5 L (32.0-36.0) g/dL RDW Coeff of [place]odi 14.7 (10.0-15.0) % Plt Count 360 D (130-400) x10^3/uL Neut % (Auto) 78.6 (50.0-80.0) % Lymph % (Auto) 12.4 L (25.0-50.0) % [place] % (Auto) 8.7 (2.0-11.0) % Eos % (Auto) 0.0 (0.0-4.0) % Baso % (Auto) 0.3 (0.2-1.2) % PT 11.4 (9.9-12.5) SEC INR 1.0 L (2.0-3.5) APTT (25.6-32.8) SEC Sodium 142 (136-145) mmol/L Potassium 5.8 H (3.5-5.1) mmol/L Chloride 105 (98-107) mmol/L Carbon Dioxide 18 L (21-32) mmol/L Anion Gap 24.8 H (5-15) mmol/L BUN 56 H D (7-18) mg/dL Creatinine 3.7 H* D (0.55-1.02) mg/dL Est Cr Clr Drug Dosing TNP Estimated GFR (MDRD) 12 Glucose 194 H (70-99) mg/dL Lactic Acid (0.4-2.0) mmol/L Calcium 7.8 L (8.5-10.1) mg/dL Corrected Calcium 8.84 (8.5-10.1) mg/dL Magnesium 3.0 H (1.8-2.4) mg/dL Total Bilirubin 0.7 (0.2-1.0) mg/dL AST 840 H (15-37) U/L ALT 688 H (14-59) U/L Alkaline Phosphatase 123 H (46-116) U/L Troponin I High Sens 121 H* (<=51) ng/L C-Reactive Protein 9.9 H (<=0.9) mg/dL Total Protein 6.6 (6.4-8.2) g/dL Albumin 2.7 L (3.4-5.0) g/dL Globulin 3.9 Albumin/Globulin Ratio 0.69 Urine Color (YELLOW) Urine Appearance (CLEAR) Urine pH (5.0-8.0) Ur Specific Conrad Urine Protein (NEGATIVE) mg/dL Urine Glucose (UA) (NEGATIVE) mg/dL Urine Ketones (NEGATIVE) mg/dL Urine Occult Blood (NEGATIVE) Urine Nitrite (NEGATIVE) Urine Bilirubin (NEGATIVE) Urine Urobilinogen (0.2) EU/dL Ur Leukocyte Esterase (NEGATIVE) U Hyaline Cast (Auto) Urine RBC (NOT SEEN) /HPF Urine WBC (NOT SEEN) /HPF Ur Squamous Epith Cells (NOT SEEN) /HPF Ur Renal Epithelial Cell (NOT SEEN) /HPF Urine Bacteria (NOT SEEN) /HPF Urine Mucus (NOT SEEN) /LPF Urine Opiates Screen (NEGATIVE) Ur Buprenorphine Scrn (NEGATIVE) Ur Oxycodone Screen (NEGATIVE) Ur EDDP (Meth Metab) (NEGATIVE) Urine Methadone Screen (NEGATIVE) Ur Barbiturates Screen (NEGATIVE) Ur Tricyclics Screen (NEGATIVE) Ur Phencyclidine Scrn (NEGATIVE) Ur Amphetamine Screen (NEGATIVE) U Methamphetamines Scrn (NEGATIVE) Urine MDMA Screen (NEGATIVE) U Benzodiazepines Scrn (NEGATIVE) U Cocaine Metab Screen (NEGATIVE) U Marijuana (THC) Screen (NEGATIVE) Ethyl Alcohol < 3 (0-3) mg/dL SARS CoV-2 RNA Rapid ZEN (NEGATIVE) 11/26/20 11/26/20 11/26/20 Range/Units 12:18 12:18 12:30 WBC (4.0-10.0) x10^3/uL RBC (4.00-5.50) x10^6/uL Hgb (12.0-16.0) g/dL Hct (33.0-47.0) % MCV (78.0-93.0) fL MCH (26.0-32.0) pg MCHC (32.0-36.0) g/dL RDW Coeff of [place]odi (10.0-15.0) % Plt Count (130-400) x10^3/uL Neut % (Auto) (50.0-80.0) % Lymph % (Auto) (25.0-50.0) % [place] % (Auto) (2.0-11.0) % Eos % (Auto) (0.0-4.0) % Baso % (Auto) (0.2-1.2) % PT (9.9-12.5) SEC INR (2.0-3.5) APTT 26.3 (25.6-32.8) SEC Sodium (136-145) mmol/L Potassium (3.5-5.1) mmol/L Chloride (98-107) mmol/L Carbon Dioxide (21-32) mmol/L Anion Gap (5-15) mmol/L BUN (7-18) mg/dL Creatinine (0.55-1.02) mg/dL Est Cr Clr Drug Dosing Estimated GFR (MDRD) Glucose (70-99) mg/dL Lactic Acid 7.1 H* (0.4-2.0) mmol/L Calcium (8.5-10.1) mg/dL Corrected Calcium (8.5-10.1) mg/dL Magnesium (1.8-2.4) mg/dL Total Bilirubin (0.2-1.0) mg/dL AST (15-37) U/L ALT (14-59) U/L Alkaline Phosphatase (46-116) U/L Troponin I High Sens (<=51) ng/L C-Reactive Protein (<=0.9) mg/dL Total Protein (6.4-8.2) g/dL Albumin (3.4-5.0) g/dL Globulin Albumin/Globulin Ratio Urine Color Yellow (YELLOW) Urine Appearance Cloudy H (CLEAR) Urine pH 5.0 (5.0-8.0) Ur Specific Conrad >=1.030 Urine Protein 100 H (NEGATIVE) mg/dL Urine Glucose (UA) Negative (NEGATIVE) mg/dL Urine Ketones Trace H (NEGATIVE) mg/dL Urine Occult Blood Trace-intact H (NEGATIVE) Urine Nitrite Negative (NEGATIVE) Urine Bilirubin Small H (NEGATIVE) Urine Urobilinogen 0.2 (0.2) EU/dL Ur Leukocyte Esterase Moderate H (NEGATIVE) U Hyaline Cast (Auto) Rare Urine RBC 0-5 (NOT SEEN) /HPF Urine WBC 20-30 H (NOT SEEN) /HPF Ur Squamous Epith Cells Many H (NOT SEEN) /HPF Ur Renal Epithelial Cell Rare H (NOT SEEN) /HPF Urine Bacteria Many H (NOT SEEN) /HPF Urine Mucus Rare H (NOT SEEN) /LPF Urine Opiates Screen (NEGATIVE) Ur Buprenorphine Scrn (NEGATIVE) Ur Oxycodone Screen (NEGATIVE) Ur EDDP (Meth Metab) (NEGATIVE) Urine Methadone Screen (NEGATIVE) Ur Barbiturates Screen (NEGATIVE) Ur Tricyclics Screen (NEGATIVE) Ur Phencyclidine Scrn (NEGATIVE) Ur Amphetamine Screen (NEGATIVE) U Methamphetamines Scrn (NEGATIVE) Urine MDMA Screen (NEGATIVE) U Benzodiazepines Scrn (NEGATIVE) U Cocaine Metab Screen (NEGATIVE) U Marijuana (THC) Screen (NEGATIVE) Ethyl Alcohol (0-3) mg/dL SARS CoV-2 RNA Rapid ZEN (NEGATIVE) 11/26/20 11/26/20 Range/Units 12:30 13:25 WBC (4.0-10.0) x10^3/uL RBC (4.00-5.50) x10^6/uL Hgb (12.0-16.0) g/dL Hct (33.0-47.0) % MCV (78.0-93.0) fL MCH (26.0-32.0) pg MCHC (32.0-36.0) g/dL RDW Coeff of [place] (10.0-15.0) % Plt Count (130-400) x10^3/uL Neut % (Auto) (50.0-80.0) % Lymph % (Auto) (25.0-50.0) % [place] % (Auto) (2.0-11.0) % Eos % (Auto) (0.0-4.0) % Baso % (Auto) (0.2-1.2) % PT (9.9-12.5) SEC INR (2.0-3.5) APTT (25.6-32.8) SEC Sodium (136-145) mmol/L Potassium (3.5-5.1) mmol/L Chloride (98-107) mmol/L Carbon Dioxide (21-32) mmol/L Anion Gap (5-15) mmol/L BUN (7-18) mg/dL Creatinine (0.55-1.02) mg/dL Est Cr Clr Drug Dosing Estimated GFR (MDRD) Glucose (70-99) mg/dL Lactic Acid (0.4-2.0) mmol/L Calcium (8.5-10.1) mg/dL Corrected Calcium (8.5-10.1) mg/dL Magnesium (1.8-2.4) mg/dL Total Bilirubin (0.2-1.0) mg/dL AST (15-37) U/L ALT (14-59) U/L Alkaline Phosphatase (46-116) U/L Troponin I High Sens (<=51) ng/L C-Reactive Protein (<=0.9) mg/dL Total Protein (6.4-8.2) g/dL Albumin (3.4-5.0) g/dL Globulin Albumin/Globulin Ratio Urine Color (YELLOW) Urine Appearance (CLEAR) Urine pH (5.0-8.0) Ur Specific Conrad Urine Protein (NEGATIVE) mg/dL Urine Glucose (UA) (NEGATIVE) mg/dL Urine Ketones (NEGATIVE) mg/dL Urine Occult Blood (NEGATIVE) Urine Nitrite (NEGATIVE) Urine Bilirubin (NEGATIVE) Urine Urobilinogen (0.2) EU/dL Ur Leukocyte Esterase (NEGATIVE) U Hyaline Cast (Auto) Urine RBC (NOT SEEN) /HPF Urine WBC (NOT SEEN) /HPF Ur Squamous Epith Cells (NOT SEEN) /HPF Ur Renal Epithelial Cell (NOT SEEN) /HPF Urine Bacteria (NOT SEEN) /HPF Urine Mucus (NOT SEEN) /LPF Urine Opiates Screen Negative (NEGATIVE) Ur Buprenorphine Scrn Negative (NEGATIVE) Ur Oxycodone Screen Negative (NEGATIVE) Ur EDDP (Meth Metab) Negative (NEGATIVE) Urine Methadone Screen Negative (NEGATIVE) Ur Barbiturates Screen Negative (NEGATIVE) Ur Tricyclics Screen Positive H (NEGATIVE) Ur Phencyclidine Scrn Negative (NEGATIVE) Ur Amphetamine Screen Negative (NEGATIVE) U Methamphetamines Scrn Negative (NEGATIVE) Urine MDMA Screen Negative (NEGATIVE) U Benzodiazepines Scrn Positive H (NEGATIVE) U Cocaine Metab Screen Negative (NEGATIVE) U Marijuana (THC) Screen Negative (NEGATIVE) Ethyl Alcohol (0-3) mg/dL SARS CoV-2 RNA Rapid ZEN Negative (NEGATIVE) Meds: Medications Generic Name Dose Route Start Last Admin Trade Name Freq PRN Reason Stop Dose Admin Sodium Chloride 10 ml 11/26/20 12:19 Sodium Chloride 0.9% 10 Ml Syringe FLUSH ASDIRECTED PRN Keep Vein Open Discontinued Medications Generic Name Dose Route Start Last Admin Trade Name Freq PRN Reason Stop Dose Admin Ceftriaxone Sodium 2 gm 11/26/20 12:49 Ceftriaxone 2 Gm Vial IVPUSH 11/26/20 12:50 STAT ONE Ondansetron HCl 4 mg 11/26/20 13:02 Ondansetron 4 Mg/2 Ml Sdv IVPUSH 11/26/20 13:03 ONETIME ONE - Radiology Interpretation Free Text/Narrative:: CT brain negative for acute pathology Chest x-ray showed no acute process - Re-Assessments/Exams Free Text/Narrative Re-Assessment/Exam: IV access established. Pt. BP in the 70-80 range systolic. Pt. alert to strong verbal stimuli, occasionally opens her eyes spontaneously. Pt. was able to maintain O2 sats in the mid 90s on O2 per NC at 4Lmin. Pt. was given a bolus of normal saline. BP began to improve and heart rate decreased. She became more responsive, seemed to be able to recognize family. Pt. was still unable to provide a ROS. CT brain and chest x-ray were negative. Pt. was started on Rocephin 2gm IV for UTI. She was also given zofran 4mg IV for dry heaving. 11/26/20 13:51 Departure - Departure Time of Disposition: 13:48 Disposition: Admitted As Inpatient 64 Clinical Impression: Sepsis secondary to UTI, Dehydration, PIETRO (acute kidney injury), Septic shock, AMS (altered mental status) - Discharge Information Referrals: Sara Sprague MD [Primary Care Provider] - Sepsis Event Note (ED) - Focused Exam Vital Signs: Vital Signs Temp Pulse Resp BP Pulse Ox 11/26/20 12:10 36.3 C 89 30 H 84/67 L 97 - Problem List Review Problem List Initiated/Reviewed/Updated: Yes - My Orders Last 24 Hours: My Active Orders 11/26/20 12:18 CULTURE BLOOD [BC] Stat 11/26/20 12:19 Sodium Chloride 0.9% [Saline Flush] 10 ml FLUSH ASDIRECTED PRN 11/26/20 12:20 EKG Documentation Completion [RC] STAT 11/26/20 12:21 Blood Culture x2 Reflex Set [OM.PC] Stat Peripheral IV Insertion Adult [OM.PC] Routine 11/26/20 12:24 CULTURE BLOOD [BC] Stat 11/26/20 12:30 CULTURE URINE [RM] Stat 11/26/20 13:21 REFLEX LACTIC ACID YES OR NO [CHEM] Routine 11/26/20 13:43 Patient Status [ADT] Routine - Assessment/Plan Last 24 Hours: My Active Orders 11/26/20 12:18 CULTURE BLOOD [BC] Stat 11/26/20 12:19 Sodium Chloride 0.9% [Saline Flush] 10 ml FLUSH ASDIRECTED PRN 11/26/20 12:20 EKG Documentation Completion [RC] STAT 11/26/20 12:21 Blood Culture x2 Reflex Set [OM.PC] Stat Peripheral IV Insertion Adult [OM.PC] Routine 11/26/20 12:24 CULTURE BLOOD [BC] Stat 11/26/20 12:30 CULTURE URINE [RM] Stat 11/26/20 13:21 REFLEX LACTIC ACID YES OR NO [CHEM] Routine 11/26/20 13:43 Patient Status [ADT] Routine Plan: Pt. will be admitted acutely. She is a code 2, DNR/DNI. Discussed findings with family. She is not interested in any invasive intervention if the need were to arise. Dr. Parker will be admitting for Dr. Sprague.
[2020-11-26 12:44] LABS: BARBITURATE SCREEN,URINE NEGATIVE (NEGATIVE); BENZODIAZEPINES SCREEN,URINE POSITIVE (NEGATIVE); EDDP,URINE SCREEN NEGATIVE (NEGATIVE); METHAMPHETAMINE SCREEN, URINE NEGATIVE (NEGATIVE); TCA SCREEN,URINE POSITIVE (NEGATIVE); THC SCREEN,URINE 50 NG/ML NEGATIVE (NEGATIVE)
[2020-11-26] MEDS ORDERED: cefTRIAXone 2 GM Vial IVPUSH ONE (12:49)
[2020-11-26] MEDS ORDERED: Ondansetron 4 MG/2 ML SDV IVPUSH ONE (13:02)
[2020-11-26 13:06] LABS: CHLORIDE,CL 105 mmol/L (98-107); SODIUM,NA 142 mmol/L (136-145)
[2020-11-26 13:07] LABS: ANION GAP 24.8 mmol/L (5-15)
--- NOTE | 2020-11-26 13:13 | CT ---
[id number] CT/CT Head WO IV EXAM: CT Head WO IV CLINICAL DATA: TRAUMA COMPARISON: CORRELATION IS MADE WITH FEBRUARY 16, 2020 FINDINGS: There is no mass or mass effect. There is no hemorrhage or hydrocephalus. There are no extra-axial fluid collections. There are no sites of abnormal attenuation. IMPRESSION: NO PLAIN CT EVIDENCE OF ACUTE INTRACRANIAL PROCESS. Hong Barr MD 11/26/20 [id number] Thank you for allowing us to participate in the care of your patient.
--- NOTE | 2020-11-26 13:14 | CR ---
[id number] RAD/RAD Chest PA or AP 1V EXAM: SINGLE VIEW CHEST. INDICATION: CHANGE IN MENTAL STATUS COMPARISON: NO PREVIOUS SIMILAR EXAM IS AVAILABLE FINDINGS: The lungs are clear The cardiomediastinal contour is enlarged A skinfold projects against the superior right hemithorax Another skinfold projects against the lateral left mid hemithorax IMPRESSION: NO ACUTE PROCESS Hong Barr MD 11/26/20 [id number] Thank you for allowing us to participate in the care of your patient.
[2020-11-26] MEDS ORDERED: Sodium Chloride 0.9% 1,000 ML IV SCH (14:00)
[2020-11-26] MEDS ORDERED: Glucagon,Human Recombinant 1 MG Vial IM PRN (14:48)
[2020-11-26] MEDS ORDERED: Insulin Regular, Human 100 Units/ML 3 ML Vial IVPUSH ONE (14:48)
[2020-11-26] MEDS ORDERED: 50% Dextrose in Water 50 ML Syringe IV PRN (14:48)
[2020-11-26 16:16] VITALS: BP 104/58; PULSE 92
[2020-11-26] MEDS ORDERED: Loperamide 2 MG Cap PO PRN (16:19)
[2020-11-26] MEDS ORDERED: Bisacodyl 5 MG Tab PO PRN (16:19)
[2020-11-26] MEDS ORDERED: Loratadine 10 MG Tab PO PRN (16:19)
[2020-11-26] MEDS ORDERED: Acetaminophen 325 MG Tab PO PRN (16:19)
[2020-11-26] MEDS ORDERED: HYDROmorphone 0.5 MG/0.5 ML Syringe IVPUSH PRN (17:07)
[2020-11-26] MEDS ORDERED: Furosemide 20 MG/2 ML VIAL IV ONE (17:08)
[2020-11-26] MEDS ORDERED: Atropine 1% Ophth Soln 5 ML BOTTLE SL PRN (17:09)
[2020-11-26] MEDS ORDERED: Ondansetron 4 MG/2 ML SDV IVPUSH PRN (17:09)
[2020-11-26] MEDS ORDERED: LORazepam 2 MG/ML SDV IV PRN (17:09)
[2020-11-26] MEDS ORDERED: diphenhydrAMINE 25 MG Cap PO PRN (17:09)
--- NOTE | 2020-11-26 17:30 | PCM.DCSUM1 ---
Discharge Summary - Hospital Course Free Text/Narrative:: Patient admitted with septic shock and renal failure. Despite IV fluids and antibiotics her condition did not improve. I discussed comfort measures with her family and they were in agreement. Nurse contacted me around 5 pm that she was in respiratory distress likely from the IV fluids with no urine output. I advised stopping fluids IV lasix for comfort and IV dilaudid and all of the comfort meds were made available but the patient passed quickly with her daughter in law at the bedside with official time of at 1712. - Discharge Data Discharge Date: 11/26/20 Discharge Disposition: 20 Condition: Good - Referral to Home Health Primary Care Physician: Sara Sprague MD - Discharge Plan Home Medications: Home Meds Aspirin [Halfprin] 81 mg PO DAILY 08/18/14 [History] Donepezil [Aricept] 10 mg PO BEDTIME 08/18/14 [History] FLUoxetine [PROzac] 60 mg PO DAILY 08/18/14 [History] Gabapentin [Neurontin] 200 mg PO BEDTIME 08/18/14 [History] Potassium Chloride 10 meq PO DAILY 08/18/14 [History] Cetirizine [ZyrTEC] 5 mg PO DAILY PRN 01/15/20 [History] Furosemide [Lasix] 40 mg PO DAILY 01/15/20 [History] Isosorbide Mononitrate [Isosorbide Mononitrate ER] 15 mg PO DAILY 01/15/20 [History] LORazepam [Ativan] 0.25 mg PO TID 01/15/20 [History] Loperamide [Imodium] 2 mg PO DAILY MDD 8 MG IN 24 HOURS 01/15/20 [History] Meclizine [Antivert] 25 mg PO BID 01/15/20 [History] Mirabegron [Myrbetriq] 25 mg PO DAILY 01/15/20 [History] Mirtazapine 30 mg PO BEDTIME 01/15/20 [History] QUEtiapine [SEROquel] 50 mg PO BID 01/15/20 [History] Spironolactone [Aldactone] 25 mg PO DAILY 01/15/20 [History] Acetaminophen [Tylenol] 650 mg PO Q4H PRN MDD 3 GRAMS IN 24 HOURS 11/26/20 [History] Calcium Polycarbophil [Fiber Laxative] 625 mg PO DAILY 11/26/20 [History] Cholecalciferol (Vitamin D3) [Vitamin D3] 4,000 unit PO DAILY 11/26/20 [History] Cranberry Fruit Extract [Cranberry] 425 mg PO DAILY 11/26/20 [History] Loperamide HCl [Imodium A-D] 2 mg PO ASDIRECTED PRN MDD 8 MG IN 24 HOURS 11/26/20 [History] bisacodyL [Bisacodyl] 5 mg PO DAILY PRN 11/26/20 [History] lisinopriL [Lisinopril] 40 mg PO DAILY 11/26/20 [History] Forms: ED Department Discharge Referrals: Sara Sprague MD [Primary Care Provider] - - Discharge Summary/Plan Comment DC Time >30 min.: No - General Info Date of Service: 11/26/20 - Patient Data Vitals - Most Recent: Last Vital Signs Temp 97.8 F 11/26/20 14:15 Pulse 92 11/26/20 14:15 Resp 23 H 11/26/20 14:15 BP 104/58 L 11/26/20 14:15 Pulse Ox 92 L 11/26/20 14:15 Weight - Most Recent: 73.8 kg Lab Results - Last 24 hrs: Laboratory Results - last 24 hr 11/26/20 11/26/20 11/26/20 Range/Units 12:18 12:18 12:18 WBC 12.2 H (4.0-10.0) x10^3/uL RBC 3.90 L (4.00-5.50) x10^6/uL Hgb 11.0 L (12.0-16.0) g/dL Hct 34.9 (33.0-47.0) % MCV 89.5 (78.0-93.0) fL MCH 28.2 (26.0-32.0) pg MCHC 31.5 L (32.0-36.0) g/dL RDW Coeff of Codi 14.7 (10.0-15.0) % Plt Count 360 D (130-400) x10^3/uL Neut % (Auto) 78.6 (50.0-80.0) % Lymph % (Auto) 12.4 L (25.0-50.0) % Hardy % (Auto) 8.7 (2.0-11.0) % Eos % (Auto) 0.0 (0.0-4.0) % Baso % (Auto) 0.3 (0.2-1.2) % PT 11.4 (9.9-12.5) SEC INR 1.0 L (2.0-3.5) APTT (25.6-32.8) SEC Sodium 142 (136-145) mmol/L Potassium 5.8 H (3.5-5.1) mmol/L Chloride 105 (98-107) mmol/L Carbon Dioxide 18 L (21-32) mmol/L Anion Gap 24.8 H (5-15) mmol/L BUN 56 H D (7-18) mg/dL Creatinine 3.7 H* D (0.55-1.02) mg/dL Est Cr Clr Drug Dosing TNP Estimated GFR (MDRD) 12 Glucose 194 H (70-99) mg/dL Lactic Acid (0.4-2.0) mmol/L Calcium 7.8 L (8.5-10.1) mg/dL Corrected Calcium 8.84 (8.5-10.1) mg/dL Magnesium 3.0 H (1.8-2.4) mg/dL Total Bilirubin 0.7 (0.2-1.0) mg/dL AST 840 H (15-37) U/L ALT 688 H (14-59) U/L Alkaline Phosphatase 123 H (46-116) U/L Troponin I High Sens 121 H* (<=51) ng/L C-Reactive Protein 9.9 H (<=0.9) mg/dL Total Protein 6.6 (6.4-8.2) g/dL Albumin 2.7 L (3.4-5.0) g/dL Globulin 3.9 Albumin/Globulin Ratio 0.69 Urine Color (YELLOW) Urine Appearance (CLEAR) Urine pH (5.0-8.0) Ur Specific [place] Urine Protein (NEGATIVE) mg/dL Urine Glucose (UA) (NEGATIVE) mg/dL Urine Ketones (NEGATIVE) mg/dL Urine Occult Blood (NEGATIVE) Urine Nitrite (NEGATIVE) Urine Bilirubin (NEGATIVE) Urine Urobilinogen (0.2) EU/dL Ur Leukocyte Esterase (NEGATIVE) U Hyaline Cast (Auto) Urine RBC (NOT SEEN) /HPF Urine WBC (NOT SEEN) /HPF Ur Squamous Epith Cells (NOT SEEN) /HPF Ur Renal Epithelial Cell (NOT SEEN) /HPF Urine Bacteria (NOT SEEN) /HPF Urine Mucus (NOT SEEN) /LPF Urine Opiates Screen (NEGATIVE) Ur Buprenorphine Scrn (NEGATIVE) Ur Oxycodone Screen (NEGATIVE) Ur EDDP (Meth Metab) (NEGATIVE) Urine Methadone Screen (NEGATIVE) Ur Barbiturates Screen (NEGATIVE) Ur Tricyclics Screen (NEGATIVE) Ur Phencyclidine Scrn (NEGATIVE) Ur Amphetamine Screen (NEGATIVE) U Methamphetamines Scrn (NEGATIVE) Urine MDMA Screen (NEGATIVE) U Benzodiazepines Scrn (NEGATIVE) U Cocaine Metab Screen (NEGATIVE) U Marijuana (THC) Screen (NEGATIVE) Ethyl Alcohol < 3 (0-3) mg/dL SARS CoV-2 RNA Rapid ZEN (NEGATIVE) 11/26/20 11/26/20 11/26/20 Range/Units 12:18 12:18 12:30 WBC (4.0-10.0) x10^3/uL RBC (4.00-5.50) x10^6/uL Hgb (12.0-16.0) g/dL Hct (33.0-47.0) % MCV (78.0-93.0) fL MCH (26.0-32.0) pg MCHC (32.0-36.0) g/dL RDW Coeff of Codi (10.0-15.0) % Plt Count (130-400) x10^3/uL Neut % (Auto) (50.0-80.0) % Lymph % (Auto) (25.0-50.0) % Hardy % (Auto) (2.0-11.0) % Eos % (Auto) (0.0-4.0) % Baso % (Auto) (0.2-1.2) % PT (9.9-12.5) SEC INR (2.0-3.5) APTT 26.3 (25.6-32.8) SEC Sodium (136-145) mmol/L Potassium (3.5-5.1) mmol/L Chloride (98-107) mmol/L Carbon Dioxide (21-32) mmol/L Anion Gap (5-15) mmol/L BUN (7-18) mg/dL Creatinine (0.55-1.02) mg/dL Est Cr Clr Drug Dosing Estimated GFR (MDRD) Glucose (70-99) mg/dL Lactic Acid 7.1 H* (0.4-2.0) mmol/L Calcium (8.5-10.1) mg/dL Corrected Calcium (8.5-10.1) mg/dL Magnesium (1.8-2.4) mg/dL Total Bilirubin (0.2-1.0) mg/dL AST (15-37) U/L ALT (14-59) U/L Alkaline Phosphatase (46-116) U/L Troponin I High Sens (<=51) ng/L C-Reactive Protein (<=0.9) mg/dL Total Protein (6.4-8.2) g/dL Albumin (3.4-5.0) g/dL Globulin Albumin/Globulin Ratio Urine Color Yellow (YELLOW) Urine Appearance Cloudy H (CLEAR) Urine pH 5.0 (5.0-8.0) Ur Specific [place] >=1.030 Urine Protein 100 H (NEGATIVE) mg/dL Urine Glucose (UA) Negative (NEGATIVE) mg/dL Urine Ketones Trace H (NEGATIVE) mg/dL Urine Occult Blood Trace-intact H (NEGATIVE) Urine Nitrite Negative (NEGATIVE) Urine Bilirubin Small H (NEGATIVE) Urine Urobilinogen 0.2 (0.2) EU/dL Ur Leukocyte Esterase Moderate H (NEGATIVE) U Hyaline Cast (Auto) Rare Urine RBC 0-5 (NOT SEEN) /HPF Urine WBC 20-30 H (NOT SEEN) /HPF Ur Squamous Epith Cells Many H (NOT SEEN) /HPF Ur Renal Epithelial Cell Rare H (NOT SEEN) /HPF Urine Bacteria Many H (NOT SEEN) /HPF Urine Mucus Rare H (NOT SEEN) /LPF Urine Opiates Screen (NEGATIVE) Ur Buprenorphine Scrn (NEGATIVE) Ur Oxycodone Screen (NEGATIVE) Ur EDDP (Meth Metab) (NEGATIVE) Urine Methadone Screen (NEGATIVE) Ur Barbiturates Screen (NEGATIVE) Ur Tricyclics Screen (NEGATIVE) Ur Phencyclidine Scrn (NEGATIVE) Ur Amphetamine Screen (NEGATIVE) U Methamphetamines Scrn (NEGATIVE) Urine MDMA Screen (NEGATIVE) U Benzodiazepines Scrn (NEGATIVE) U Cocaine Metab Screen (NEGATIVE) U Marijuana (THC) Screen (NEGATIVE) Ethyl Alcohol (0-3) mg/dL SARS CoV-2 RNA Rapid ZEN (NEGATIVE) 11/26/20 11/26/20 Range/Units 12:30 13:25 WBC (4.0-10.0) x10^3/uL RBC (4.00-5.50) x10^6/uL Hgb (12.0-16.0) g/dL Hct (33.0-47.0) % MCV (78.0-93.0) fL MCH (26.0-32.0) pg MCHC (32.0-36.0) g/dL RDW Coeff of Codi (10.0-15.0) % Plt Count (130-400) x10^3/uL Neut % (Auto) (50.0-80.0) % Lymph % (Auto) (25.0-50.0) % Hardy % (Auto) (2.0-11.0) % Eos % (Auto) (0.0-4.0) % Baso % (Auto) (0.2-1.2) % PT (9.9-12.5) SEC INR (2.0-3.5) APTT (25.6-32.8) SEC Sodium (136-145) mmol/L Potassium (3.5-5.1) mmol/L Chloride (98-107) mmol/L Carbon Dioxide (21-32) mmol/L Anion Gap (5-15) mmol/L BUN (7-18) mg/dL Creatinine (0.55-1.02) mg/dL Est Cr Clr Drug Dosing Estimated GFR (MDRD) Glucose (70-99) mg/dL Lactic Acid (0.4-2.0) mmol/L Calcium (8.5-10.1) mg/dL Corrected Calcium (8.5-10.1) mg/dL Magnesium (1.8-2.4) mg/dL Total Bilirubin (0.2-1.0) mg/dL AST (15-37) U/L ALT (14-59) U/L Alkaline Phosphatase (46-116) U/L Troponin I High Sens (<=51) ng/L C-Reactive Protein (<=0.9) mg/dL Total Protein (6.4-8.2) g/dL Albumin (3.4-5.0) g/dL Globulin Albumin/Globulin Ratio Urine Color (YELLOW) Urine Appearance (CLEAR) Urine pH (5.0-8.0) Ur Specific [place] Urine Protein (NEGATIVE) mg/dL Urine Glucose (UA) (NEGATIVE) mg/dL Urine Ketones (NEGATIVE) mg/dL Urine Occult Blood (NEGATIVE) Urine Nitrite (NEGATIVE) Urine Bilirubin (NEGATIVE) Urine Urobilinogen (0.2) EU/dL Ur Leukocyte Esterase (NEGATIVE) U Hyaline Cast (Auto) Urine RBC (NOT SEEN) /HPF Urine WBC (NOT SEEN) /HPF Ur Squamous Epith Cells (NOT SEEN) /HPF Ur Renal Epithelial Cell (NOT SEEN) /HPF Urine Bacteria (NOT SEEN) /HPF Urine Mucus (NOT SEEN) /LPF Urine Opiates Screen Negative (NEGATIVE) Ur Buprenorphine Scrn Negative (NEGATIVE) Ur Oxycodone Screen Negative (NEGATIVE) Ur EDDP (Meth Metab) Negative (NEGATIVE) Urine Methadone Screen Negative (NEGATIVE) Ur Barbiturates Screen Negative (NEGATIVE) Ur Tricyclics Screen Positive H (NEGATIVE) Ur Phencyclidine Scrn Negative (NEGATIVE) Ur Amphetamine Screen Negative (NEGATIVE) U Methamphetamines Scrn Negative (NEGATIVE) Urine MDMA Screen Negative (NEGATIVE) U Benzodiazepines Scrn Positive H (NEGATIVE) U Cocaine Metab Screen Negative (NEGATIVE) U Marijuana (THC) Screen Negative (NEGATIVE) Ethyl Alcohol (0-3) mg/dL SARS CoV-2 RNA Rapid ZEN Negative (NEGATIVE) LILIA Results - Last 24 hrs: Microbiology 11/26/20 12:24 Anaerobic Blood Culture - Final Blood - Venous - Lab Draw Med Orders - Current: Current Medications Acetaminophen (Acetaminophen 325 Mg Tab) 650 mg PO Q4H PRN PRN Reason: Pain Atropine Sulfate (Atropine 1% Ophth Soln 5 Ml Bottle) 0 ml SL Q2H PRN PRN Reason: Copius Secretions Bisacodyl (Bisacodyl 5 Mg Tab) 5 mg PO DAILY PRN PRN Reason: Constipation Ceftriaxone Sodium (Ceftriaxone 1 Gm Vial) 1 gm IVPUSH DAILY UNIQUE Diphenhydramine HCl (Diphenhydramine 25 Mg Cap) 25 mg PO Q4H PRN PRN Reason: Nausea Fluoxetine HCl (Fluoxetine 20 Mg Cap) 60 mg PO DAILY UNIQUE Gabapentin (Gabapentin 100 Mg Cap) 200 mg PO BEDTIME UNIQUE Hydromorphone HCl (Hydromorphone 0.5 Mg/0.5 Ml Syringe) 0.5 mg IVPUSH Q4H PRN PRN Reason: Pain Loperamide HCl (Loperamide 2 Mg Cap) 2 mg PO ASDIRECTED PRN PRN Reason: diarrhea Loratadine (Loratadine 10 Mg Tab) 5 mg PO DAILY PRN PRN Reason: Allergies Lorazepam (Lorazepam 0.5 Mg Tab) 0.25 mg PO TID UNIQUE Lorazepam (Lorazepam 2 Mg/Ml Sdv) 0.5 mg IV Q4H PRN PRN Reason: Restlessness or Anxiety Mirtazapine (Mirtazapine 30 Mg Tab) 30 mg PO BEDTIME UNIQUE Ondansetron HCl (Ondansetron 4 Mg/2 Ml Sdv) 4 mg IVPUSH Q4H PRN PRN Reason: Nausea Quetiapine Fumarate (Quetiapine 25 Mg Tab) 50 mg PO BID UNIQUE Sodium Chloride (Sodium Chloride 0.9% 10 Ml Syringe) 10 ml FLUSH ASDIRECTED PRN PRN Reason: Keep Vein Open Discontinued Medications Ceftriaxone Sodium (Ceftriaxone 2 Gm Vial) 2 gm IVPUSH STAT ONE Stop: 11/26/20 12:50 Last Admin: 11/26/20 12:50 Dose: 2 gm Documented by: Furosemide (Furosemide 20 Mg/2 Ml Vial) 20 mg IV ONETIME ONE Stop: 11/26/20 17:09 Sodium Chloride (Normal Saline) 1,000 mls @ 150 mls/hr IV ASDIRECTED UNIQUE Last Admin: 11/26/20 14:58 Dose: 150 mls/hr Documented by: Insulin Human Regular (Insulin Regular, Human 100 Units/Ml 3 Ml Vial) 5 unit IVPUSH ONETIME ONE Stop: 11/26/20 14:49 Last Admin: 11/26/20 15:19 Dose: 5 units Documented by: Ondansetron HCl (Ondansetron 4 Mg/2 Ml Sdv) 4 mg IVPUSH ONETIME ONE Stop: 11/26/20 13:03 Last Admin: 11/26/20 13:05 Dose: 4 mg Documented by:
--- NOTE | 2020-11-26 17:31 | PCM.SN.2 ---
- Free Text/Narrative Note: just stopped in to visit with family as pt has just .
[2020-11-26 19:00] LABS: ANION GAP 26.6 mmol/L (5-15)
[2020-11-26] MEDS ORDERED: Mirtazapine 30 MG Tab PO SCH (20:00)
[2020-11-26] MEDS ORDERED: QUEtiapine 25 MG Tab PO SCH (20:00)
[2020-11-26] MEDS ORDERED: Gabapentin 100 MG Cap PO SCH (20:00)
[2020-11-26] MEDS ORDERED: LORazepam 0.5 MG Tab PO SCH (20:00)
--- NOTE | 2020-11-26 22:53 | HP ---
CHIEF COMPLAINT: Unresponsiveness. HISTORY OF PRESENT ILLNESS: This is an 80-year-old female with dementia who lives in the senior living since last summer, who did fall on 11/23/2020 and hit her head. More so, just walking, she fell and hit her head on the wall. Blood pressure was high at that time, 168/90. Then, she had sort of an uneventful weekend on 11/24/2020 BP 141/72 but this morning, she fell out of bed. She was just sitting on the edge of bed, hit her head again, and then was dry heaving. The patient has not had any fever or chills. Blood pressures were quite low on ER arrival and in the ambulance like 70s over 40s. She received over a liter of fluids, but has not had much output per nursing, but became more alert with her blood pressures up around 100. She was answering questions. She recognized her [id number]. She denied that she was having any chest pain or diarrhea, but said "yes" for abdominal pain and burning with urination. She was given IV Rocephin. She was felt to be septic, literally in septic shock, due to lactic of 7 and creatinine up to 3.7 when previously, it had been 1.5. Discussion was had with her [id number] who is the point of contact for the family and agreements were made for focus on comfort measures, but to continue antibiotics and IV fluids. ALLERGIES: Include Lipitor, calcium, morphine, and simvastatin. Her morphine allergy was "I get loopy." MEDICATIONS: Her medication list is reviewed from [facility] and includes Neurontin 200 at bedtime, meclizine, Imdur 15 mg daily, Zyprexa 2.5 daily, fluoxetine 60 mg daily, Ativan 0.25 t.i.d., Prolia, Zyrtec, Lamisil cream, Metamucil, Seroquel 50 mg twice daily, Aldactone 25 mg daily, Remeron 30 mg at bedtime, vitamin D 4000 daily, calcium 625 daily, potassium 10 mEq daily, Myrbetriq 25 mg daily, Aricept 10 mg at bedtime, lisinopril 40 mg daily, aspirin 81 mg daily, cranberry tabs, guanfacine, Tums, Imodium, and Tylenol. PAST MEDICAL HISTORY: Includes the anxiety; adrenal adenoma remotely; bariatric surgery status; bilateral carotid artery stenosis; history of diarrhea, chronic; chronic diastolic heart failure; chronic back pain; history of right wrist fracture, the patient has not been using her arm much since per family and nursing staff at the [facility]; coronary artery disease with previous elevated troponins, unknown if she had any stenting as it also happened [place] of [place] once; dyspepsia from NSAIDs in the past; essential hypertension; GERD; iron deficiency anemia; Alzheimer disease since 2012; mixed urinary incontinence; depression; osteoporosis; PTSD; arthritis of the knees; seasonal allergies; vitamin D deficiency; vitamin B deficiency. PAST SURGICAL HISTORY: Surgically, the patient has had knee replacement surgeries, both knees; incisional hernia surgery; hysterectomy for fibroids; cholecystectomy; gastric bypass; back surgery x3 due to childhood injuries and one in [place]. SOCIAL HISTORY: The patient is . She lived in assisted living but moved in to [facility] in the summer of 2019. She is a nonsmoker. At one point, she worked at [employer]. FAMILY HISTORY: She has one sister still living who has diabetes. Another sister recently of kidney failure and osteoporosis with fracture. Both parents . Mother had heart disease. She has a couple of brothers who . REVIEW OF SYSTEMS: General: The patient has had quite significant weight loss since moving in to [facility], like 20 pounds since last year. No fever. No chills. HEENT: The patient does not report any history swallowing. Again, review of systems is limited due to patient lethargy at the time of exam. Otherwise, all systems reviewed as they could be with the patient and stated in HPI. PHYSICAL EXAMINATION: Vital Signs: Currently, the patient's weight is 73.8 kg, but initially 69.0 in the ER. Temp 97.8, pulse 92, blood pressure 104/58, respiratory rate 23, O2 of 92 on 3 L. General: She is in no acute distress. She is actually quite somnolent, but arouses easily to verbal stimuli. She is not using the right arm, but apparently this is normal for her. She is following some commands by wiggling her toes and using the left arm. HEENT: Her pupils are equal, round, reactive to light. Her extraocular motor function is intact. Heart: Her heart is a regular rate and rhythm. Lungs: Lung sounds are clear to auscultation with reduced respiratory effort. There are no wheezing or crackles. Abdomen: Nondistended, nontender. Extremities: Warm and dry. She has trace edema to the ankles. Mental Status: She did not answer review of systems questions for me. Skin: Does have a slight abrasion to her forehead which is reported to be new from today from the nurse. LABORATORY DATA: Her lab work in the ER was white count 12.2, hemoglobin 11, platelets 360. INR 1. Sodium 142, potassium 5.8, chloride 105, bicarb 18, BUN 56, creatinine 3.7, glucose 194, lactic 7.1, calcium 7.8, magnesium 3, bilirubin 0.7, AST 840, ALT is 688, alkaline phosphatase 123. Troponin 1.23. CRP 9.9, albumin 2.7. UA: Trace ketones, moderate wbc's, 20 to 30 wbc's, no rbc's, positive for tricyclics and benzos as expected from her med list and negative for COVID. EKG does show a sinus rhythm, rate 87, right bundle-branch block, probably old inferior infarcts. ASSESSMENT AND PLAN: 1. Septic shock with low blood pressures, likely source is the urine. Other possibilities are things like meningitis or internal bleeding from her falls, although no obvious injury. Discussed with the patient's primary contact, [id number] Tawnya Nathan. Did offer to call her , the son of the patient. Tawnya states that, as she is a nurse, she gets the medical information and will relay it to family. I did discuss that the patient is critically ill and may not improve. Therefore, the patient is admitted for palliative and comfort measures. We will continue with fluids and antibiotics. Repeat the lab work in 3 hours and see if she improves. Her course is very guarded. 2. Acute on chronic renal failure, likely due to acute shock. We will continue IV fluids. Stokes catheter is in place for strict in's and out's. 3. Hyperkalemia, likely due to her medications and renal failure. Given elevated blood sugar, I will give her 5 units of regular insulin now. She is not having any acute EKG changes. Repeat with her lactic in 3 hours. 4. [id number] myocardial infarction. This is presumably due to the shock. She is not having any chest pain. We will monitor with telemetry initially, but then when we made the decision to go comfort cares, we did discontinue telemetry. 5. Acute hepatitis. This is probably ischemic due to the low blood pressures. We will repeat tomorrow was the original plan, but again when she went to comfort measures, we will discontinue all lab work. 6. Anemia. This is a chronic problem for the patient. There are no acute signs of bleeding. 7. Urinary tract infection. The patient had recently had urinary tract infection with Escherichia coli back in 06/2020 which was pansensitive. For this reason and no fevers, we elected to stay with Rocephin. 8. Dementia. We will continue her home medications. 9. Moderate malnutrition. 10.Hyperglycemia, but no history of diabetes. The patient is admitted to acute cares for IV antibiotics and fluids. After discussion further with the family real estate representative, decision was made to focus also on palliative and comfort measures. I do expect that the patient may not improve from this condition and may actually pass away. Comfort medications such as IV Dilaudid available for any respiratory distress. MKA: 11/26/2020 17:27:00 MODL: 11/26/2020 22:46:03 /[id number]
[2020-11-27] MEDS ORDERED: cefTRIAXone 1 GM Vial IVPUSH SCH (08:00)
[2020-11-27] MEDS ORDERED: FLUoxetine 20 MG Cap PO SCH (08:00)
== END 2020-11-26 17:12 | disposition expired | DRG 871 ==
LOC: VM.ED 12:10 → VM.MS 13:43
PROVIDERS: ADMIT Internal Medicine; ATTEND Family Medicine
DX: A41.9 Sepsis, unspecified organism (principal); R65.21 Severe sepsis with septic shock; I21.4 Non-ST elevation (NSTEMI) myocardial infarction; I50.32 Chronic diastolic (congestive) heart failure; N17.9 Acute kidney failure, unspecified; I13.0 Hypertensive heart and chronic kidney disease with heart failure and stage 1 through stage 4 chronic kidney disease, or unspecified chronic kidney disease; B17.9 Acute viral hepatitis, unspecified; N39.0 Urinary tract infection, site not specified; E44.0 Moderate protein-calorie malnutrition; Z51.5 Encounter for palliative care; Z66 Do not resuscitate; I10 Essential (primary) hypertension; Z20.822 Contact with and (suspected) exposure to COVID-19; N18.9 Chronic kidney disease, unspecified; E87.5 Hyperkalemia; F03.90 Unspecified dementia, unspecified severity, without behavioral disturbance, psychotic disturbance, mood disturbance, and anxiety; R73.9 Hyperglycemia, unspecified; F41.9 Anxiety disorder, unspecified; D35.00 Benign neoplasm of unspecified adrenal gland; I65.23 Occlusion and stenosis of bilateral carotid arteries; G89.29 Other chronic pain; M54.9 Dorsalgia, unspecified; K21.9 Gastro-esophageal reflux disease without esophagitis; D50.9 Iron deficiency anemia, unspecified; R10.13 Epigastric pain; E86.0 Dehydration; G30.9 Alzheimer's disease, unspecified; F02.80 Dementia in other diseases classified elsewhere, unspecified severity, without behavioral disturbance, psychotic disturbance, mood disturbance, and anxiety; N39.46 Mixed incontinence; F32.9 Major depressive disorder, single episode, unspecified; M81.0 Age-related osteoporosis without current pathological fracture; F43.10 Post-traumatic stress disorder, unspecified; D63.1 Anemia in chronic kidney disease; R29.6 Repeated falls; I25.119 Atherosclerotic heart disease of native coronary artery with unspecified angina pectoris; E55.9 Vitamin D deficiency, unspecified; E78.00 Pure hypercholesterolemia, unspecified; E53.9 Vitamin B deficiency, unspecified; M19.90 Unspecified osteoarthritis, unspecified site; Z96.653 Presence of artificial knee joint, bilateral; Z79.82 Long term (current) use of aspirin; Z68.25 Body mass index [BMI] 25.0-25.9, adult; Z79.899 Other long term (current) drug therapy; Z98.84 Bariatric surgery status; Z88.6 Allergy status to analgesic agent; Z90.710 Acquired absence of both cervix and uterus; Z90.49 Acquired absence of other specified parts of digestive tract; Z88.5 Allergy status to narcotic agent; Z88.8 Allergy status to other drugs, medicaments and biological substances; Z98.890 Other specified postprocedural states; Z91.81 History of falling; Z83.3 Family history of diabetes mellitus; Z82.49 Family history of ischemic heart disease and other diseases of the circulatory system; Z82.62 Family history of osteoporosis; Z87.440 Personal history of urinary (tract) infections
CPT/HCPCS: 36415; 51702; 70450; 71045; 80048; 80053; 80305-QW; 80307; 81001; 83605; 83735; 84484; 85025; 85610; 85730; 86140; 87040; 87086; 87088; 87186; 93005; 93010; 96374; 96375; 99284; 99285-25; J0696; J1815-GY; J2405; J7030; U0002